=== PATIENT | female | born 1955 | race Caucasian/White ===

== ENCOUNTER 2018-05-30 12:15 | Emergency (ER) | payer BC ==
[2018-05-30 12:16] VITALS: BMI 30.2
[2018-05-30] MEDS ORDERED: Albuterol-Ipratrop 3 mg / 0.5 (3 ml) UD INH STA ×2 (13:38→15:54)
[2018-05-30] MEDS ORDERED: Albuterol-Ipratrop 3 mg / 0.5 (3 ml) UD ONE ×3 (13:53→16:55)
[2018-05-30 14:10] LABS: BASO # 0.1 K/uL (0.0-0.2); BASO % 0.6 % (0.0-2.0); EOS # 0.3 K/uL (0.0-0.7); EOS % 2.3 % (0.0-4.0); HEMOGLOBIN 14.1 g/dL (11.0-16.0); LYMPH # 2.8 K/uL (1.0-4.3); LYMPH % 24.6 % (20.0-40.0); MEAN CELL VOLUME 88.5 fL (81.0-99.0); MEAN CORPUSCULAR HEMOGLOBIN 30.8 pg (27.0-31.0); MEAN CORPUSCULAR HGB CONC 34.8 g/dL (33.0-37.0); MEAN PLATELET VOLUME 7.9 fL (7.2-11.7); MONO # 0.5 K/uL (0.0-0.8); NEUT # 7.7 K/uL (1.8-7.0); NEUT % 68.5 % (50.0-75.0); RBC 4.59 Mil/uL (3.80-5.20); RED CELL DISTRIBUTION WIDTH 13.6 % (11.5-14.5); WHITE BLOOD COUNT 11.3 K/uL (4.8-10.8)
[2018-05-30 14:25] LABS: ALB/GLOB RATIO 1.4 (1.0-2.1); ALBUMIN 4.6 g/dL (3.5-5.0); ALT/SGPT 22 U/L (9-52); AST/SGOT 22 U/L (14-36); BLOOD UREA NITROGEN 11 mg/dL (7-17); CALCIUM 9.5 mg/dl (8.6-10.4); GFR NON-AFRICAN AMERICAN > 60
[2018-05-30 14:29] LABS: PROTHROMBIN TIME 11.1 SECONDS (9.7-12.2)
[2018-05-30 14:39] LABS: B-TYPE NATRIURETIC PEPTIDE 48.3 pg/mL (0-900)
--- NOTE | 2018-05-30 15:06 | RAD ---
Date of service: 05/30/2018 HISTORY: Shortness of breath COMPARISON: No prior. TECHNIQUE: Chest PA and lateral FINDINGS: LUNGS: Mild venous congestion. Patchy increased markings at the lung bases. PLEURA: No significant pleural effusion identified. No pneumothorax apparent. CARDIOVASCULAR: No atherosclerotic calcification present Normal. OSSEOUS STRUCTURES: No significant abnormalities. VISUALIZED UPPER ABDOMEN: Normal. OTHER FINDINGS: Multiple overlying tubes and wires. IMPRESSION: Mild venous congestion. Patchy increased markings at the lung bases.
[2018-05-30 15:22] LABS: SQUAMOUS EPITHIAL < 1 /hpf (0-5); URINE BACTERIA RARE (<OCC); URINE BILIRUBIN NEGATIVE (NEGATIVE); URINE BLOOD NEGATIVE (NEGATIVE); URINE CLARITY Clear (Clear); URINE COLOR Straw (YELLOW); URINE GLUCOSE (UA) 2+ mg/dL (Normal); URINE LEUKOCYTE ESTERASE NEG Leu/uL (Negative); URINE PROTEIN NEGATIVE (NEGATIVE); URINE UROBILINOGEN NORMAL mg/dL (0.2-1.0)
[2018-05-30 15:29] VITALS: RESP 18
--- NOTE | 2018-05-30 16:04 | CT ---
Date of service: 05/30/2018 PROCEDURE: CT Chest without contrast HISTORY: Chronic cough. COMPARISON: None available. TECHNIQUE: Contiguous axial images were obtained through the chest without intravenous contrast enhancement. Sagittal and coronal reconstructions were performed. Radiation dose: Total exam DLP = 503.77 mGy-cm. This CT exam was performed using one or more of the following dose reduction techniques: Automated exposure control, adjustment of the mA and/or kV according to patient size, and/or use of iterative reconstruction technique. FINDINGS: LUNGS: 2 millimeter subpleural nodule along the anterior aspect of the right middle lobe on series 3, image 36. Mild atelectasis within the anterior aspect of the right middle lobe. 3 millimeter intrafissural nodule and or lymph nodes seen on series 3, image 52 in the left lung. Mild thickening of an accessory fissure seen in the inferior aspect of the left upper lobe on series 3, images 58-62. 3 millimeter pulmonary nodule within the anterior aspect of the left lower lobe on series 3, image 83. MEDIASTINUM: Aortic atherosclerotic calcification and mural plaque noted. No gross mediastinal lymphadenopathy. PLEURA: No pleural fluid. No pneumothorax. BONES: Degenerative changes in the spine. UPPER ABDOMEN: Prior cholecystectomy. Distended stomach with prominent food substance. OTHER FINDINGS: None. IMPRESSION: 1. Few scattered subcentimeter bilateral pulmonary nodules. Correlation with three-month follow-up CT scan is recommended for further evaluation. 2 millimeter subpleural nodule along the anterior aspect of the right middle lobe on series 3, image 36. 3 millimeter pulmonary nodule within the anterior aspect of the left lower lobe on series 3, image 83. 3 millimeter intrafissural nodule and or lymph nodes seen on series 3, image 52 in the left lung. 2. Mild atelectasis within the anterior aspect of the right middle lobe. 3. Mild thickening of an accessory fissure seen in the inferior aspect of the left upper lobe on series 3, images 58-62.
--- NOTE | 2018-05-30 16:42 | C.PDOC ---
History Of Present Illness 19 year old female presents to ED complaining of dry non productive cough for the past 2 months. Patient states she was seen by Dr. Meier 2 weeks ago for the same symptoms and improved transiently using steroids and nebulizer malini atments. Patient demonstrates poor MDI technique. Denies fever, chills, weight loss, shortness of breath, weakness, numbness. Denies h/o cig smoking, no occupational exposures 2nd hand smoke exposure- smokes cigars @ home. Son visits and smokes cigarettes "outside" Time Seen by Provider: 05/30/18 13:15 Chief Complaint (Nursing): Cough, Cold, Congestion History Per: Patient History/Exam Limitations: no limitations Onset/Duration Of Symptoms: Days Current Symptoms Are (Timing): Still Present Past Medical History Reviewed: Historical Data, Nursing Documentation, Vital Signs Vital Signs: Last Vital Signs Temp 98.2 F 05/30/18 15:28 Pulse 91 H 05/30/18 15:28 Resp 18 05/30/18 15:28 BP 152/76 H 05/30/18 15:28 Pulse Ox 100 05/30/18 15:28 - Medical History PMH: Denies: Depression Surgical History: No Surg Hx - [facility] Procedures DX ULTRASOUND-THORAX NEC (04/01/12) PERCUTAN NEEDLE BIOPSY OF BREAST (04/01/12) TETANUS TOXOID ADMINIST (03/13/14) Family History: States: No Known Family Hx - Social History Hx Alcohol Use: No Hx Substance Use: No Review Of Systems Except As Marked, All Systems Reviewed And Found Negative. Constitutional: Negative for: Fever, Chills, Weight loss Cardiovascular: Negative for: Chest Pain Respiratory: Positive for: Cough (Dry, nonproductive.). Negative for: Shortness of Breath Gastrointestinal: Negative for: Nausea, Vomiting Neurological: Negative for: Weakness, Numbness Physical Exam - Physical Exam Appears: Non-toxic, No Acute Distress Skin: Warm, Dry Head: Atraumatic, Normacephalic Eye(s): bilateral: PERRL, EOMI Oral Mucosa: Moist Neck: Supple Chest: Symmetrical, No Deformity Cardiovascular: Rhythm Regular, No Murmur Respiratory: Normal Breath Sounds, No Rales, No Rhonchi, Wheezing (On forced expiration.), Other (Raspy voice with dry non-productive cough.) Gastrointestinal/Abdominal: Soft, No Tenderness Neurological/Psych: Oriented x3 ED Course And Treatment - Laboratory Results Result Diagrams: 05/30/18 14:07 05/30/18 14:07 Lab Interpretation: Normal ECG: Interpreted By Me ECG Rhythm: Sinus Rhythm ECG Interpretation: Normal Rate From EC O2 Sat by Pulse Oximetry: 100 (RA) Pulse Ox Interpretation: Normal - Radiology CXR: Interpreted by Me CXR Interpretation: Yes: No Acute Disease, Other (+ ? atalectasis RML/RLL area, no pna/pnx) - Other Rad CT chest X-Ray: Interpreted by Me, Viewed By Me Interpretation: IMPRESSION: 1. Few scattered subcentimeter bilateral pulmonary nodules. Correlation with three-month follow-up CT scan is recommended for further evaluation. 2 millimeter subpleural nodule along the anterior aspect of the right middle lobe on series 3, image 36. 3 millimeter pulmonary nodule within the anterior aspect of the left lower lobe on series 3, image 83. 3 millimeter intrafissural nodule and or lymph nodes seen on series 3, image 52 in the left lung. 2. Mild atelectasis within the anterior aspect of the right middle lobe. 3. Mild thickening of an accessory fissure seen in the inferior aspect of the left upper lobe on series 3, images 58-62. Chest x-ray X-Ray: Interpreted by Me, Viewed By Me Interpretation: IMPRESSION: Mild venous congestion. Patchy increased markings at the lung bases. Reevaluation Time: 16:58 Reassessment Condition: Improved - Physician Consult Information Outcome Of Conversation: 1700: d/w Dr. Meier- PMD, ok to d/c home with opt f/u. Critical Care Time - Critical Care Note Total Time (in mins): 90 Documented critical care: time excludes all time spent performing seperately billable procedures. Medical Decision Making Medical Decision Making: Plan: * CT chest * EKG * Labs * Chest x-ray * Duoneb * Methylprednisolone * Nebulizer treatment * Urinalysis. * reactive airway vs early COPD, + 2ndary smoke exposures @ home. poor MDI/nebs therapies @ home now improved with further education in ED Disposition Doctor Will See Patient In The: Office Counseled Patient/Family Regarding: Studies Performed, Diagnosis - Disposition Referrals: Ruddy Mieer MD [Staff Provider] - Disposition: HOME/ ROUTINE Disposition Time: 17:00 Condition: GOOD Additional Instructions: Avoid exposure to even 2nd hand smoke. Even smoking outside is statistically equivalent to smoking inside the house! continue nebulizer treatments with TWO ampules of Duoneb every 3-4 hours for the next 4-5 days 2 puffs of Albuterol puffer ( by 15 seconds) every 3-4 hours as needed when away from home. Always use with Aerochamber Spacer (plastic spacer) Follow-up with Dr. Meier to review your evaluation and CT results (given) Call for an appt. Prescriptions: Albuterol HFA [Ventolin HFA 90 mcg/actuation (8 g)] 2 puff IH Q4H PRN #1 puff PRN Reason: asthma Albuterol/Ipratropium [Duoneb 3 MG/3 Ml-0.5 MG/3 Ml 3 Ml] 6 ml IH Q4H PRN #100 neb PRN Reason: asthma Spacer, Inhalation [Aerochamber] 1 dev IH DAILY #1 dev Instructions: Asthma in Adults Forms: [place] ([place]) - Clinical Impression Clinical Impression: Cough - Scribe Statement The provider has reviewed the documentation as recorded by the Marcela Hayesed Provider Attestation: All medical record entries made by the Fatimahibpauline were at my direction and personally dictated by me. I have reviewed the chart and agree that the record accurately reflects my personal performance of the history, physical exam, medical decision making, and the department course for this patient. I have also personally directed, reviewed, and agree with the discharge instructions and disposition.
[2018-05-30 17:37] VITALS: BP 148/69; PULSE 115; TEMP 98.7
[2018-05-30 18:29] VITALS: O2SAT 100
--- NOTE | 2018-06-02 19:27 | CARD ---
APPROVED REPORT Date of service: 05/30/2018 EKG Measurement Heart [id number] <Conclusion> Normal sinus rhythm Prolonged QT Abnormal ECG
== END 2018-05-30 17:37 | disposition home or self-care (01) ==
LOC: C.ER 12:15
DX: R05 Cough (principal)
CPT/HCPCS: 71046; 71250; 80053; 81001; 83880; 84484; 85025; 85378; 85610; 85730; 93005; 94150; 94640; 96374; 99284; J2930